=== PATIENT | female | born 1950 | race Caucasian/White ===

== ENCOUNTER 2021-08-09 10:21 | Inpatient (IN) | payer MEDICARE ==
[~2021-08-09] VITALS: Ht 172.7 cm; Wt 105.2 kg
[2021-08-09 11:13] LABS: HEMOGLOBIN 15.8 gm/dl (12.3-15.3); WHITE BLOOD COUNT 19.2 K/UL (4.5-11.0)
[2021-08-09] MEDS ORDERED: ZETIA10 MG PO (16:37)
[2021-08-09] MEDS ORDERED: PROTONIX 40 MG40 M1 PO (16:37)
[2021-08-09] MEDS ORDERED: ZYRTEC10 MG PO (16:37)
[2021-08-09] MEDS ORDERED: VITAMIN C500 M4 PO (16:38)
[2021-08-09 20:33] LABS: BUN/CREATININE RATIO 20 (0-10)
[2021-08-10 03:06] LABS: HEMOGLOBIN 14.3 gm/dl (12.3-15.3); RED BLOOD COUNT 4.59 M/UL (4.00-5.10); WHITE BLOOD COUNT 17.3 K/UL (4.5-11.0)
[2021-08-11 04:03] LABS: HEMOGLOBIN 12.6 gm/dl (12.3-15.3)
[2021-08-11 04:30] LABS: RED BLOOD COUNT 4.03 M/UL (4.00-5.10)
[2021-08-11 04:40] LABS: BUN/CREATININE RATIO 18 (0-10)
[2021-08-12 03:44] LABS: BUN/CREATININE RATIO 15 (0-10)
[2021-08-12 04:08] LABS: HEMOGLOBIN 12.9 gm/dl (12.3-15.3); RED BLOOD COUNT 4.13 M/UL (4.00-5.10); WHITE BLOOD COUNT 8.8 K/UL (4.5-11.0)
[2021-08-12] MEDS ORDERED: METRONIDAZOLE500 MG PO (09:52)
[2021-08-12] MEDS ORDERED: LEVOFLOXACIN500 MG PO (09:52)
== END 2021-08-12 13:25 | disposition home or self-care (01) | DRG 392 ==
LOC: ER1 10:21 → CDU 16:16 → M/S 16:16
PROVIDERS: Physician Assistant Medical; Student in an Organized Health Care Education/Training Program; ADMIT Internal Medicine
DX: K57.20 Diverticulitis of large intestine with perforation and abscess without bleeding (principal); E78.5 Hyperlipidemia, unspecified; R91.8 Other nonspecific abnormal finding of lung field; D72.829 Elevated white blood cell count, unspecified; Z90.49 Acquired absence of other specified parts of digestive tract; Z98.890 Other specified postprocedural states; Z79.899 Other long term (current) drug therapy; Z82.49 Family history of ischemic heart disease and other diseases of the circulatory system
CPT/HCPCS: 36415; 80048; 80053; 82550; 82553; 83605; 83690; 83735; 83880; 84100; 84484; 85025; 85027; 86140; 87040; 93005; 99285; C9113; J2185; J7030; Q9967